=== PATIENT | male | born 1950 | race Caucasian/White ===

== ENCOUNTER 2016-05-20 11:39 | Emergency (ER) | payer OTHER ==
[~2016-05-20] VITALS: Ht 182.9 cm; Wt 127.6 kg
[~2016-05-20 11:39] MED LIST: Ativan PO; CEFDINIR300 MG PO; COUMADIN4 MG PO; COUMADIN5 MG PO; Cardizem CD,Cartia X PO; Coumadin Daily Dose PO; Coumadin Protocol PO; Coumadin,Jantoven PO; Feosol PO; HYDROCHLOROTHIA25 MG PO; Hydrodiuril,Oretic,E PO; LOVENOX120 MG/0.8 SC; MAGNACET PO; Senokot S,Pericolace PO; TYLENOL WITH C1 EACH PO; Tylenol Extra Streng PO; ULTRACET1 TABLET PO; Vicodin,Norco 5/325 PO; celeBREX PO
[2016-05-20 11:54] LABS: EOSINOPHIL (%) 2.9 % (0-5); EOSINOPHIL COUNT 0.2 K/uL (0-0.3); IMMATURE GRANULOCYTE (%) 0.3 % (0.0-0.7); IMMATURE GRANULOCYTE COUNT 0.2 K/uL; LYMPHOCYTE COUNT 2.1 K/uL (1.0-2.8); MCH 32.6 PG (29.0-34.0); MCHC 34.7 G/DL (30.0-36.0); MCV 94.1 FL (86-99); MEAN PLAT.VOLUME 9.5 uM^3 (9.0-12.4); MONOCYTE (%) 7.6 % (3-12); MONOCYTE COUNT 0.6 K/uL (0-0.8); NEUTROPHIL (%) 62.5 % (45-76); NEUTROPHIL COUNT 4.9 K/uL (1.8-6.4); PLATELET COUNT 161 K/uL (156-360); RBC DIS.WIDTH-CV 12.6 % (11.8-14.6); RBC DIS.WIDTH-SD 42.5 % (39-53); RED BLOOD COUNT 4.57 M/uL (4.00-5.50); WHITE BLOOD COUNT 7.9 K/uL (4.1-10.2)
[2016-05-20 12:03] LABS: AMYLASE 30 IU/L (1-118); CHLORIDE 105 mEq/L (99-109); POTASSIUM 4.3 mEq/L (3.7-5.4); SODIUM 141 mEq/L (136-147)
[2016-05-20 12:05] LABS: GLUCOSE 93 mg/dL (70-99)
[2016-05-20 12:06] LABS: ANION GAP 8 MEQ/L (2-14)
[2016-05-20 12:08] LABS: SERUM ETHYL ALCOHOL < 10 mg/dL
[2016-05-20 12:09] LABS: GFR ESTIMATE (CALCULATED) > 59 mL/min/
[2016-05-20 12:10] LABS: UREA NITROGEN (BUN) 14 mg/dL (9-23)
[2016-05-20 12:12] LABS: LIPASE 33 U/L (1.0-51.0)
[2016-05-20] MEDS ORDERED: TYLENOL WITH C1 EACH PO (14:09)
== END 2016-05-20 15:07 | disposition home or self-care (01) ==
LOC: TRA 11:39
PROVIDERS: Emergency Medicine
DX: S16.1XXA Strain of muscle, fascia and tendon at neck level, initial encounter (principal); S20.219A Contusion of unspecified front wall of thorax, initial encounter; S30.0XXA Contusion of lower back and pelvis, initial encounter; S30.811A Abrasion of abdominal wall, initial encounter; V59.10XA Passenger in pick-up truck or van injured in collision with unspecified motor vehicles in nontraffic accident, initial encounter; Y92.488 Other paved roadways as the place of occurrence of the external cause; I10 Essential (primary) hypertension; Z86.711 Personal history of pulmonary embolism; Z86.718 Personal history of other venous thrombosis and embolism; Z79.01 Long term (current) use of anticoagulants; Z98.1 Arthrodesis status; Z96.652 Presence of left artificial knee joint
CPT/HCPCS: 70450; 71260; 72040; 72125; 72129; 72132; 73130; 73552; 73560; 74177; 80048; 81003; 82150; 83690; 85025; 86850; 86900; 86901; 93005; 99281; 99285; G0480